=== PATIENT | male | born 1970 | race African-American/Black ===

== ENCOUNTER 2017-01-24 09:01 | Emergency (ER) | payer OTHER, BC ==
[2017-01-24 09:11] VITALS: BP 154/101; PULSE 75; TEMP 98; BMI 23.1
--- NOTE | 2017-01-24 10:21 | PDOC ---
History of Present Illness - General Chief Complaint: Injury Stated Complaint: PAIN/ BACK, LEG Time Seen by Provider: 01/24/17 10:11 History Source: Patient Exam Limitations: No Limitations - History of Present Illness Initial Comments: 01/24/17 10:27 Chief complaint: Back and leg injury Patient 46-year-old male with a history of stomach issues, he is not sure what, but had surgery and states that everything is okay, not sure what medicine he takes for his stomach but states he is allowed to take Motrin and Advil who came in after twisting his back and leg being twisted when he was moving furniture in the back of the truck broke. Patient did not fall. Patient is ambulatory. Patient states pain was worse last night but having some lower back pain and pain into the left leg, ankle. Patient did not take any pain medicine. No numbness and tingling, no saddle anesthesia, no urinary incontinence GENERAL/CONSTITUTIONAL: No fever, weakness. dizziness HEAD, EYES, EARS, NOSE AND THROAT: No change in vision. No ear pain or discharge. No sore throat. CARDIOVASCULAR: No chest pain RESPIRATORY: No shortness of breath or cough GASTROINTESTINAL: No pain, nausea, vomiting, diarrhea or constipation GENITOURINARY: No dysuria MUSCULOSKELETAL: No neck +back pain, + leg SKIN: No rash NEUROLOGIC: No headache, vertigo, loss of consciousness, or loss of sensation. GENERAL: The patient is awake, alert, and fully oriented, in no acute distress. HEAD: Normal with no signs of trauma. EYES: Pupils equal, round and reactive to light, sclera anicteric, conjunctiva clear. ENT: pharynx: no erythema, no exudate, uvula midline NECK: supple CHEST: clear, nontender, rr ABD: soft, nontender Back: Minimal lower back tenderness, some discomfort with movement EXTREMITIES: Left lower extremity knee: No tenderness, full range of motion, no swelling or signs of injury. Leg no tenderness or swelling, ankle with minimal tenderness, no gross swelling, good range of motion, Wilkerson test is negative, neurovascular intact. Rest of extremities, Normal range of motion, no edema. NEUROLOGICAL: Normal speech, normal gait. SKIN: Warm, Dry Past History - Past Medical History Allergies/Adverse Reactions: Allergies Allergy/AdvReac Type Severity Reaction Status Date / Time No Known Allergies Allergy Verified 01/24/17 09:11 Home Medications: Ambulatory Orders Cyclobenzaprine HCl [Flexeril 10 mg] 10 mg PO TID PRN #21 tablet 01/24/17 Ibuprofen [Motrin -] 600 mg PO QID #28 tablet 01/24/17 Asthma: No CVA: No COPD: No Diabetes: No HTN: Yes - Surgical History GI Surgery: Yes - Immunization History Td Vaccination: (unknown) Immunization Up to Date: Yes - Suicide/Smoking/Psychosocial Hx Smoking Status: Yes Smoking History: Never smoked Years of Tobacco Use: 8 Number of Cigarettes Smoked Daily: 2 Cigars Per Day: 0 'Breaking Loose' booklet given: 01/10/14 Hx Alcohol Use: Yes (SOCIAL) Drug/Substance Use Hx: No Substance Use Type: None *Physical Exam - Vital Signs Last Vital Signs Temp Pulse Resp BP Pulse Ox 98.0 F 75 20 154/101 97 01/24/17 09:08 01/24/17 09:08 01/24/17 09:08 01/24/17 09:08 01/24/17 09:08 Medical Decision Making - Medical Decision Making 01/24/17 10:31 Patient who twisted his back and leg yesterday while moving furniture, patient complaining of lower back pain, no incontinence, no saddle anesthesia or numbness or tingling. Patient with left leg pain. No concerning signs, does have some tenderness to the ankle, Achilles is intact, we'll get an x-ray, Motrin and Flexeril. Patient has taken Flexeril for her back issues before. No imaging is indicated for the spine 01/24/17 10:32 Patient feels better, ambulatory without any difficulty Discussed issues, findings, results, applicable medications and treatments and follow-up. All these were understood and all questions were answered 01/24/17 12:14 *DC/Admit/Observation/Transfer Diagnosis at time of Disposition: Back injury Qualifiers: Encounter type: initial encounter Qualified Code(s): S39.92XA - Unspecified injury of lower back, initial encounter Leg injury Qualifiers: Encounter type: initial encounter Laterality: left Qualified Code(s): S89.92XA - Unspecified injury of left lower leg, initial encounter - Discharge Dispostion Disposition: HOME Condition at time of disposition: Unchanged/Unknown Admit: No - Prescriptions Prescriptions: Cyclobenzaprine HCl [Flexeril 10 mg] 10 mg PO TID PRN #21 tablet PRN Reason: Back Pain Ibuprofen [Motrin -] 600 mg PO QID #28 tablet - Referrals Referrals: Elvi Vargas MD [Primary Care Provider] - Jose Angel Palmer MD [Staff Physician] - - Patient Instructions Printed Discharge Instructions: DI for Back Spasm Additional Instructions: No heavy lifting or bending Apply ice to the area 20 minutes every 2 hours for the next 2 days Continue taking Motrin 600 mg every 6 hours for pain. If still in pain you can take Flexeril one tablet 3 times a day hours. Return to the nearest ER if numbness, weakness, severe pain, problems with urinating or having bowel movements. Call orthopedist today for an appointment for further evaluation - Post Discharge Activity
[2017-01-24] MEDS ORDERED: IBUPROFEN 600 MG TABLET (FP) PO ONE ×2 (10:22→10:25)
[2017-01-24] MEDS ORDERED: CYCLOBENZAPRINE HCL 5 MG TABLET PO ONE (10:23)
[2017-01-24] MEDS ORDERED: CYCLOBENZAPRINE HCL 10 MG TABLET (FP) ONE (10:25)
== END 2017-01-24 11:28 | disposition home or self-care (01) ==
LOC: JERFT 09:01
DX: S39.82XA Other specified injuries of lower back, initial encounter (principal); S89.82XA Other specified injuries of left lower leg, initial encounter; X50.1XXA Overexertion from prolonged static or awkward postures, initial encounter; Y93.E6 Activity, residential relocation; Y92.89 Other specified places as the place of occurrence of the external cause; Y99.0 Civilian activity done for income or pay
CPT/HCPCS: 73610-TC-LT; 99281-25

== ENCOUNTER 2017-10-27 14:47 | Emergency (ER) | payer SELFPAY ==
--- NOTE | 2017-10-27 14:53 | PDOC ---
Rapid Medical Evaluation Chief Complaint: Pain, Acute Time Seen by Provider: 10/27/17 14:49 Medical Evaluation: Allergies Allergy/AdvReac Type Severity Reaction Status Date / Time No Known Allergies Allergy Verified 01/24/17 09:11 10/27/17 14:49 I have performed a brief in-person evaluation of this patient. The patient presents with a CC of: Abd Pain HPI: Pt states he has had abd pain x 1.5 weeks. Pt admits to N/V. Denies fever. Pt has a hx of abd surgeries. Pertinent PE findings: Skin: Clear Heart: RRR Lungs: Clear Abd: Pt has diffuse tenderness, no guarding, bowel sounds present. MS: Moves all extremities without difficulty. Neuro: Alert and Oriented Psych: Appropriate affect I have ordered the following: Abd protocol The patient will proceed to the ED for further evaluation. Discharge Disposition - Referrals Referrals: Elvi Vargas MD [Primary Care Provider] - - Patient Instructions - Post Discharge Activity
[2017-10-27 14:55] VITALS: BP 114/85; PULSE 98; TEMP 99; BMI 22.4
[2017-10-27] MEDS ORDERED: ONDANSETRON 4 MG/2 ML VIAL IVPUSH ONE (15:13)
[2017-10-27] MEDS ORDERED: FAMOTIDINE 20 MG/50 ML IVPB 20 MG/50 ML MG IVPB ONE ×2 (15:13→15:49)
[2017-10-27] MEDS ORDERED: SODIUM CHLORIDE 0.9% 1000 ML INFUS.BAG IV ONE (15:13)
--- NOTE | 2017-10-27 15:22 | PDOC ---
History of Present Illness - General Chief Complaint: Pain, Acute Stated Complaint: PAIN Time Seen by Provider: 10/27/17 14:49 History Source: Patient Exam Limitations: No Limitations - History of Present Illness Initial Comments: 10/27/17 15:18 The patient is a 47M with a PMH of HTN and "stomach surgery" who presents to the ER with complaints of epigastric pain. The patient states that he's had 4-5 days of intermittent, sharp, and abrupt onset abdominal pain. The patient describes a 9/10 pain which is associated with decreased PO intake, nausea, vomiting after eating meals NBNB. LBM yesterday which was normal. He admits to fevers, chills, CP (which he cannot describe as he states it "is sometimes the same as my stomach pains"), but denies SOB. Past History - Past Medical History Allergies/Adverse Reactions: Allergies Allergy/AdvReac Type Severity Reaction Status Date / Time No Known Allergies Allergy Verified 10/27/17 14:51 Home Medications: Ambulatory Orders Cyclobenzaprine HCl [Flexeril 10 mg] 10 mg PO TID PRN #21 tablet 01/24/17 Ibuprofen [Motrin -] 600 mg PO QID #28 tablet 01/24/17 Asthma: No CVA: No COPD: No Diabetes: No HTN: Yes - Surgical History GI Surgery: Yes - Immunization History Td Vaccination: (unknown) Immunization Up to Date: Yes - Suicide/Smoking/Psychosocial Hx Smoking Status: Yes Smoking History: Never smoked Years of Tobacco Use: 8 Number of Cigarettes Smoked Daily: 2 Cigars Per Day: 0 Information on smoking cessation initiated: No 'Breaking Loose' booklet given: 01/10/14 Hx Alcohol Use: No Drug/Substance Use Hx: No Substance Use Type: None Review of Systems - Review of Systems Able to Perform ROS?: Yes Comments:: 10/27/17 15:22 GENERAL/CONSTITUTIONAL: No fever or chills. No weakness. HEAD, EYES, EARS, NOSE AND THROAT: No change in vision. No ear pain or discharge. No sore throat. CARDIOVASCULAR: Positive for CP. No palpitations or lightheadedness. RESPIRATORY: No cough, wheezing, shortness of breath, or hemoptysis. GASTROINTESTINAL: Positive for abdominal pain, nausea, vomiting. No diarrhea or constipation. GENITOURINARY: No dysuria, frequency, hematuria, or change in urination. MUSCULOSKELETAL: No joint or muscle swelling or pain. No neck or back pain. SKIN: No rash or lesions. NEUROLOGIC: No headache, numbness, tingling, focal weakness, loss of consciousness, or change in strength/sensation. ENDOCRINE: No increased thirst. No abnormal weight change. HEMATOLOGIC/LYMPHATIC: No anemia, easy bleeding, or history of blood clots. ALLERGIC/IMMUNOLOGIC: No hives or skin allergy. Is the patient limited Jamaican proficient: No *Physical Exam - Vital Signs Last Vital Signs Temp Pulse Resp BP Pulse Ox 99.0 F 98 H 16 114/85 95 10/27/17 14:51 10/27/17 14:51 10/27/17 14:51 10/27/17 14:51 10/27/17 14:51 - Physical Exam Comments: 10/27/17 15:30 GENERAL: Well developed, well nourished. Awake and alert. No acute distress. HEENT: Normocephalic, atraumatic. Hearing grossly normal. Moist mucous membranes. PERRLA, EOMI. No conjunctival pallor. Sclera are non-icteric. NECK: Supple. Full ROM. CARDIOVASCULAR: Regular rate and rhythm. No murmurs, rubs, or gallops. PULMONARY: No evidence of respiratory distress. Lungs clear to auscultation bilaterally. No wheezing, rales or rhonchi. ABDOMINAL: Soft. TTP over epigastrium. Non-distended. No rebound or guarding. Positive Emerson's sign. GENITOURINARY: No CVA tenderness bilaterally. MUSCULOSKELETAL: Normal range of motion at all joints. No bony deformities or tenderness. EXTREMITIES: No cyanosis. No clubbing. No edema. No calf tenderness or swelling. SKIN: Warm and dry. Normal capillary refill. No rashes. No jaundice. NEUROLOGICAL: Alert, awake, appropriate. Cranial nerves 2-12 intact. Normal speech. Gait is normal without ataxia. PSYCHIATRIC: Cooperative. Good eye contact. Appropriate mood and affect. ED Treatment Course - LABORATORY CBC & Chemistry Diagram: 10/27/17 15:25 10/27/17 15:25 - RADIOLOGY Radiology Studies Ordered: Category Date Time Status ABDOMEN US -LIMITED [US] Stat Ultrasound 10/27/17 15:15 Ordered Medical Decision Making - Medical Decision Making 10/27/17 15:35 The patient is a 47M with a PMH of HTN and abdominal surgery who presents with abdominal pain. Concern for pancreatitis vs RUQ pathology. ACS is very low on the differential as the patient has tenderness to palpation. Will give fluids, pepcid, and zofran and reassess. 10/27/17 17:09 RUQ US shows dilated CBD 1cm with dilated pancreatic duct. Pending CTAP. 10/27/17 18:56 Pending CTAP read. Pt states he feels better. 10/27/17 20:03 CTAP shows no acute pathology but also shows the 1cm dilation of CBD. Will d/c with PCP and GI f/u. *DC/Admit/Observation/Transfer Diagnosis at time of Disposition: Abdominal pain Qualifiers: Abdominal location: generalized Qualified Code(s): R10.84 - Generalized abdominal pain - Discharge Dispostion Disposition: HOME Condition at time of disposition: Stable Decision to Admit order: No - Referrals Referrals: Elvi Vargas MD [Primary Care Provider] - Cathy Dejesus MD [Staff Physician] - - Patient Instructions Printed Discharge Instructions: DI for Abdominal Pain-Adult Additional Instructions: Please follow up with your primary care physician in 2-3 days. Follow up with the GI doctor, Dr. Dejesus, in 3-5 day Please return to the ER if you have any signs or symptoms of chest pain, shortness of breath, uncontrollable fever, chills, nausea, vomiting, numbness, tingling, or weakness in any part of your body, changes in vision, or slurred speech. Please return to the ER if symptoms persist, worsen, or new symptoms arise. - Post Discharge Activity
[2017-10-27] MEDS ORDERED: ONDANSETRON 4 MG/2 ML VIAL ONE (15:49)
[2017-10-27 15:50] LABS: BASO % 0.9 % (0-2.0); EOS % 1.6 % (0-4.5); HEMATOCRIT 43.5 % (35.4-49); HEMOGLOBIN 14.7 GM/dL (11.7-16.9); LYMPH % 32.8 % (8-40); MCH 31.8 pg (25.7-33.7); MCHC 33.9 g/dl (32.0-35.9); MEAN CELL VOLUME 93.8 fl (80-96); MEAN PLT VOLUME 8.1 fl (7.5-11.1); MONO % 9.4 % (3.8-10.2); NEUT % 55.3 % (42.8-82.8); PLATELET COUNT 201 K/MM3 (134-434); RBC 4.63 M/mm3 (4.00-5.60); RDW 13.4 % (11.9-15.9); WHITE BLOOD COUNT 6.4 K/mm3 (4.0-10.0)
--- NOTE | 2017-10-27 16:02 | PDOC ---
Attending Attestation - Resident Resident Name: Jr Lynn - ED Attending Attestation I have performed the following: I have examined & evaluated the patient, The case was reviewed & discussed with the resident, I agree w/resident's findings & plan - HPI HPI: 10/27/17 15:58 47-year-old male with history of perforated gastric ulcer 2 years ago status post repair with no GI follow-up now presents with several days of intermittent sharp epigastric pain associated with nonbloody nonbilious emesis, typically occurs at night but is not necessarily postprandial. No fevers or chills, no melena or bright red blood per rectum, no other chest pain. - Physicial Exam PE: 10/27/17 15:58 Vitals as noted well-appearing seated in chair No jaundice or pallor, oropharynx clear Heart is regular, lungs are clear Abdomen is soft and nondistended, epigastric discomfort to palpation but no guarding or rebound. No CVA tenderness. No edema - Medical Decision Making 10/27/17 16:00 47-year-old male presents with epigastric pain intermittently for several days associated with vomiting, history of ulcers. Abdominal exam shows no acute peritoneal findings, question recurrence versus biliary versus pancreatic etiology. Not consistent with cardiac etiology. Labs, urinalysis CT of the abdomen and pelvis, rule out stricture versus obstruction EKG IV fluids, antacids Reassess Heart Score/ECG Review #1 ECG reviewed & interpreted by me at: 15:34 General ECG Interpretation: Sinus Rhythm, Normal Rate (69), Normal Intervals ( qtc 445), No acute ischemic changes
[2017-10-27 16:06] LABS: ALBUMIN 4.1 g/dl (3.4-5.0); ANION GAP 12 MMOL/L (8-16); BLOOD UREA NITROGEN 16 mg/dL (7-18); CALCIUM 9.4 mg/dL (8.5-10.1); CHLORIDE 103 mmol/L (98-107); CO2 26 mmol/L (21-32); CREATININE 1.1 mg/dL (0.55-1.3); GLUCOSE,RANDOM 97 mg/dL (74-106); LIPASE 122 U/L (73-393); POTASSIUM 3.8 mmol/L (3.5-5.1); SGOT/AST 23 U/L (15-37); SGPT/ALT 22 U/L (13-61); SODIUM 141 mmol/L (136-145)
[2017-10-27 16:08] LABS: ALK PHOS 60 U/L (45-117); TOT PROT 7.4 g/dl (6.4-8.2)
--- NOTE | 2017-10-28 12:33 | EKG ---
Test Reason : Blood Pressure : / mmHG Vent. Rate : 069 BPM Atrial Rate : 069 BPM P-R Int : 116 ms QRS Dur : 098 ms QT Int : 416 ms P-R-T Axes : 072 073 016 degrees QTc Int : 445 ms NORMAL SINUS RHYTHM WITH SINUS ARRHYTHMIA POSSIBLE LEFT ATRIAL ENLARGEMENT BORDERLINE ECG WHEN COMPARED WITH ECG OF 06-APR-2014 13:43, NO SIGNIFICANT CHANGE WAS FOUND Confirmed by JERILYN ALVARADO, HAYLEY ([id number]) on 10/28/2017 12:32:57 PM Referred By: Confirmed By:HAYLEY JEAN-BAPTISTE MD
== END 2017-10-27 20:40 | disposition home or self-care (01) ==
LOC: JER 14:47
PROC: 3E0337Z Introduction of Electrolytic and Water Balance Substance into Peripheral Vein, Percutaneous Approach (ICD-10-PCS; principal; 2017-10-27)
PROC: 3E033GC Introduction of Other Therapeutic Substance into Peripheral Vein, Percutaneous Approach (ICD-10-PCS; 2017-10-27)
DX: R10.84 Generalized abdominal pain (principal); I10 Essential (primary) hypertension
CPT/HCPCS: 36415; 74177-TC; 76705-TC; 80053; 83690; 85025; 93005; 93010; 99283-25; J7030

== ENCOUNTER 2018-12-07 15:08 | Emergency (ER) | payer BC ==
[2018-12-07 15:15] VITALS: BP 144/96; PULSE 68; TEMP 98; BMI 24.4
--- NOTE | 2018-12-07 15:15 | PDOC ---
Rapid Medical Evaluation Time Seen by Provider: 12/07/18 15:14 Medical Evaluation: Allergies Allergy/AdvReac Type Severity Reaction Status Date / Time No Known Allergies Allergy Verified 10/27/17 14:51 12/07/18 15:14 I have performed a brief in-person evaluation of this patient. The patient presents with a chief complaint of: Abd pain x 2 days. Possible recurrent. No n/v/d/c/f/c. Endorses h/o "abdominal surgery" remotely but does not remember details Pertinent physical exam findings:stable w/ unremarkable abd I have ordered the following:labs The patient will proceed to the ED for further evaluation. Discharge Disposition - Diagnosis Abdominal pain Qualifiers: Abdominal location: unspecified location Qualified Code(s): R10.9 - Unspecified abdominal pain - Referrals - Patient Instructions - Post Discharge Activity
[2018-12-07 15:41] LABS: BASO % 1.1 % (0-2.0); EOS % 3.5 % (0-4.5); HEMATOCRIT 44.9 % (35.4-49); HEMOGLOBIN 14.9 GM/dL (11.7-16.9); LYMPH % 35.1 % (8-40); MCH 32.5 pg (25.7-33.7); MCHC 33.1 g/dl (32.0-35.9); MEAN PLT VOLUME 8.3 fl (7.5-11.1); NEUT % 50.3 % (42.8-82.8); PLATELET COUNT 209 K/MM3 (134-434); RBC 4.58 M/mm3 (4.00-5.60); RDW 13.7 % (11.9-15.9); WHITE BLOOD COUNT 5.8 K/mm3 (4.0-10.0)
[2018-12-07 15:44] LABS: EPI CELLS 1.2 /HPF (0-5/HPF); HYALINE CASTS 2 /lpf (0-8); URINE APPEARANCE CLEAR; URINE BACTERIA 13.2 /hpf (NEGATIVE); URINE BILIRUBIN NEGATIVE (NEGATIVE); URINE COLOR YELLOW; URINE GLUCOSE (UA) NEGATIVE (NEGATIVE); URINE KETONE TRACE (NEGATIVE); URINE LEUK ESTERASE TRACE (NEGATIVE); URINE NITRITE NEGATIVE (NEGATIVE); URINE PROTEIN NEGATIVE (NEGATIVE); URINE RBC 1 /hpf (0-4); URINE WBC 2 /hpf (0-5)
[2018-12-07] MEDS ORDERED: FAMOTIDINE 20 MG/50 ML IVPB 20 MG/50 ML MG IVPB ONE ×2 (15:55→15:58)
[2018-12-07] MEDS ORDERED: SODIUM CHLORIDE 1,000 ML IV STA (15:55)
[2018-12-07] MEDS ORDERED: ACETAMINOPHEN 1000 MG/100 ML VIAL (NON FORMULARY) IVPB ONE (15:57)
[2018-12-07] MEDS ORDERED: ACETAMINOPHEN INJECTION 100 ML IVPB ONE (16:01)
[2018-12-07 16:09] LABS: ALBUMIN 3.6 g/dl (3.4-5.0); BILIRUBIN,TOTAL 0.4 mg/dL (0.2-1); BLOOD UREA NITROGEN 14.2 mg/dL (7-18); CREATININE 1.1 mg/dL (0.55-1.3); POTASSIUM 4.3 mmol/L (3.5-5.1); TOT PROT 6.4 g/dl (6.4-8.2)
--- NOTE | 2018-12-07 16:16 | PDOC ---
History of Present Illness - General History Source: Patient Exam Limitations: Clinical Condition - History of Present Illness Travel History: No Initial Comments: 12/07/18 16:12 Patient with a history of gastric ulcer status post surgery with 2 years ago for gastric ulcer presented with complaint of one-week history of worsening epigastric pain. Patient reported abdominal pain not affected by food. Reports pain is intermittent cramping epigastric pain. Patient reports 7 out of 10 pain now. Denies nausea, vomiting, fever, chills, diarrhea or constipation. Patient report calling his PCP for follow-up who advised him to come to the ED for abdominal CAT scan. Patient to follow-up with his PCP in few days. Patient did not take anything for pain Timing/Duration: reports: other (1 week) Quality: reports: burning, cramping Abdominal Pain Onset Location: reports: epigastric Pain Radiation: reports: no radiation <Finn Mariee - Last Filed: 12/07/18 17:53> <Jan Day - Last Filed: 12/07/18 18:42> - General Chief Complaint: Pain Stated Complaint: ABD. PAIN/LOWER BACK PAIN Time Seen by Provider: 12/07/18 15:14 Past History - Past Medical History Asthma: No CVA: No COPD: No Diabetes: No HTN: Yes - Surgical History GI Surgery: Yes - Immunization History Td Vaccination: (unknown) Immunization Up to Date: Yes - Psycho Social/Smoking Cessation Hx Smoking Status: Yes Smoking History: Current every day smoker Years of Tobacco Use: 8 Number of Cigarettes Smoked Daily: 40 Cigars Per Day: 0 Information on smoking cessation initiated: No 'Breaking Loose' booklet given: 01/10/14 Hx Alcohol Use: No Drug/Substance Use Hx: No Substance Use Type: None <Finn Mariee - Last Filed: 12/07/18 17:53> <Jan Day - Last Filed: 12/07/18 18:42> - Past Medical History Allergies/Adverse Reactions: Allergies Allergy/AdvReac Type Severity Reaction Status Date / Time No Known Allergies Allergy Verified 12/07/18 15:16 Home Medications: Ambulatory Orders Acetaminophen [Tylenol] 650 mg PO Q6H PRN #20 capsule 12/07/18 Famotidine [Pepcid -] 20 mg PO BID #14 tablet 12/07/18 Mag Hydrox/Aluminum Hyd/Simeth [Maalox Advanced Suspension] 30 ml PO Q8H PRN # 200 ml 12/07/18 Abd/GI Specific PMHX - Complaint Specific PMHX Colitis: No Diverticulitis: No Gall Bladder Disease: No GERD: Yes Hepatitis: No Irritable Bowel Synd (IBS): No Pancreatitis: No GI Ulcer Disease: Yes <Finn Mariee - Last Filed: 12/07/18 17:53> Review of Systems - Review of Systems Able to Perform ROS?: Yes Is the patient limited Chinese proficient: No Constitutional: No: Chills, Fever, Malaise HEENTM: No: Symptoms Reported Respiratory: No: Symptoms reported Cardiac (ROS): No: Symptoms Reported, See HPI, Chest Pain, Edema, Irregular Heart Rate, Lightheadedness, Palpitations, Syncope, Chest Tightness, Other ABD/GI: Yes: See HPI, Abdominal cramping (epigastric pain). No: Symptoms Reported, Abd. Pain w/ defecation, Blood Streaked Bowels, Constipated, Diarrhea , Difficulty Swallowing, Nausea, Poor Appetite, Poor Fluid Intake, Rectal Bleeding, Vomiting, Indigestion, Tarry Stools : No: Symptoms Reported All Other Systems: Reviewed and Negative <Finn Mariee - Last Filed: 12/07/18 17:53> *Physical Exam - Vital Signs Last Vital Signs Temp Pulse Resp BP Pulse Ox 98 F 68 18 144/96 98 12/07/18 15:12 12/07/18 15:12 12/07/18 15:12 12/07/18 15:12 12/07/18 15:12 - Physical Exam Comments: 12/07/18 16:16 GENERAL: Well developed, well nourished. Awake and alert in mild acute distress. NECK: Supple. Full ROM. CARDIOVASCULAR: Regular rate and rhythm. No murmurs, rubs, or gallops. PULMONARY: No evidence of respiratory distress. Lungs clear to auscultation bilaterally. No wheezing, rales or rhonchi. ABDOMINAL: Soft. Moderate epigastric tenderness. Non-distended. No rebound or guarding. No organomegaly. Normoactive bowel sounds. MUSCULOSKELETAL Normal range of motion at all joints. SKIN: Warm and dry. Normal capillary refill. NEUROLOGICAL: Alert, awake, appropriate. Gait is normal without ataxia. PSYCHIATRIC: Cooperative. Good eye contact. Appropriate mood General Appearance: Yes: Nourished, Appropriately Dressed, Mild Distress <Finn Mariee - Last Filed: 12/07/18 17:53> - Vital Signs Last Vital Signs Temp Pulse Resp BP Pulse Ox 98 F 68 18 144/96 98 12/07/18 15:12 12/07/18 15:12 12/07/18 15:12 12/07/18 15:12 12/07/18 15:12 <Jan Day - Last Filed: 12/07/18 18:42> ED Treatment Course - LABORATORY CBC & Chemistry Diagram: 12/07/18 15:32 12/07/18 15:32 - ADDITIONAL ORDERS Additional order review: Laboratory Results 12/07/18 12/07/18 15:32 15:32 Sodium 141 Potassium 4.3 Chloride 108 H Carbon Dioxide 28 Anion Gap 5 L BUN 14.2 Creatinine 1.1 Est GFR (CKD-EPI)AfAm 90.24 Est GFR (CKD-EPI)NonAf 77.86 Random Glucose 99 Calcium 9.0 Total Bilirubin 0.4 AST 23 ALT 26 Alkaline Phosphatase 58 Total Protein 6.4 Albumin 3.6 Lipase 98 Urine Color Yellow Urine Appearance Clear Urine pH 7.0 D Ur Specific [place] 1.024 Urine Protein Negative Urine Glucose (UA) Negative Urine Ketones Trace H Urine Blood Negative Urine Nitrite Negative Urine Bilirubin Negative Urine Urobilinogen 1.0 Ur Leukocyte Esterase Trace Urine WBC (Auto) 2 Urine RBC (Auto) 1 Urine Casts (Auto) 2 U Epithel Cells (Auto) 1.2 Urine Bacteria (Auto) 13.2 12/07/18 15:32 RBC 4.58 MCV 98.0 H MCHC 33.1 RDW 13.7 MPV 8.3 Neutrophils % 50.3 Lymphocytes % 35.1 Monocytes % 10.0 Eosinophils % 3.5 D Basophils % 1.1 - RADIOLOGY Radiology Studies Ordered: Category Date Time Status ABDOMEN & PELVIS CT WITH CONTR [CT] Stat CT Scan 12/07/18 16:09 Ordered - Medications Given in the ED: ED Medications Discontinued Medications Generic Name Dose Route Start Last Admin Trade Name Freq PRN Reason Stop Dose Admin Acetaminophen 1,000 mg 12/07/18 15:57 12/07/18 16:09 Ofirmev Injection - IVPB 12/07/18 15:58 1,000 mg ONCE ONE Administration <Kodi,Finn Morro - Last Filed: 12/07/18 17:53> - LABORATORY CBC & Chemistry Diagram: 12/07/18 15:32 12/07/18 15:32 - ADDITIONAL ORDERS Additional order review: Laboratory Results 12/07/18 12/07/18 15:32 15:32 Sodium 141 Potassium 4.3 Chloride 108 H Carbon Dioxide 28 Anion Gap 5 L BUN 14.2 Creatinine 1.1 Est GFR (CKD-EPI)AfAm 90.24 Est GFR (CKD-EPI)NonAf 77.86 Random Glucose 99 Calcium 9.0 Total Bilirubin 0.4 AST 23 ALT 26 Alkaline Phosphatase 58 Total Protein 6.4 Albumin 3.6 Lipase 98 Urine Color Yellow Urine Appearance Clear Urine pH 7.0 D Ur Specific [place] 1.024 Urine Protein Negative Urine Glucose (UA) Negative Urine Ketones Trace H Urine Blood Negative Urine Nitrite Negative Urine Bilirubin Negative Urine Urobilinogen 1.0 Ur Leukocyte Esterase Trace Urine WBC (Auto) 2 Urine RBC (Auto) 1 Urine Casts (Auto) 2 U Epithel Cells (Auto) 1.2 Urine Bacteria (Auto) 13.2 12/07/18 15:32 RBC 4.58 MCV 98.0 H MCHC 33.1 RDW 13.7 MPV 8.3 Neutrophils % 50.3 Lymphocytes % 35.1 Monocytes % 10.0 Eosinophils % 3.5 D Basophils % 1.1 - Medications Given in the ED: ED Medications Discontinued Medications Generic Name Dose Route Start Last Admin Trade Name Freq PRN Reason Stop Dose Admin Acetaminophen 1,000 mg 12/07/18 15:57 12/07/18 16:09 Ofirmev Injection - IVPB 12/07/18 15:58 1,000 mg ONCE ONE Administration Famotidine/Sodium Chloride 20 mg in 50 mls @ 100 mls/hr 12/07/18 15:55 16:09 Pepcid 20 Mg Premixed Ivpb - IVPB 12/07/18 16:24 100 mls/hr ONCE ONE Administration Sodium Chloride 1,000 mls @ 1,000 mls/hr 12/07/18 15:55 12/07/18 16:08 Normal Saline - IV 12/07/18 16:54 1,000 mls/hr ASDIR STA Administration <Jan Day - Last Filed: 12/07/18 18:42> Medical Decision Making - Medical Decision Making 12/07/18 16:14 Patient with a history of gastric ulcer status post surgery with 2 years ago for gastric ulcer presented with complaint of one-week history of worsening epigastric pain. Patient reported abdominal pain not affected by food. Reports pain is intermittent cramping epigastric pain. Patient reports 7 out of 10 pain now. Denies nausea, vomiting, fever, chills, diarrhea or constipation. Patient report calling his PCP for follow-up who advised him to come to the ED for abdominal CAT scan. Patient to follow-up with his PCP in few days. Patient did not take anything for pain Exam significant for moderate epigastric tenderness throughout regard about rebound without guarding or rebound otherwise normal exam. Symptoms likely gastric ulcer versus gastritis. CBC, CMP and lipase level ordered. IV Tylenol 1 g ordered IV for pain. IV hydration with normal saline 1 L ordered. Abdominal CAT scan with IV contrast ordered to rule out acute abdominal pathology 12/07/18 17:53 CBC and CMP unremarkable. abdominal CT shows no acute pathology and unchanged from CT a year ago. Patient stable for discharge on pepcid and maalox for gastritis with GI f/u. Patient stable for discharge. Patient pain improved after IV fluids, pepcid and Tylenol <Finn Mariee - Last Filed: 12/07/18 17:53> - Medical Decision Making 12/07/18 18:42 I reviewed the case of the mid-level practitioner and was available for consultation while in the emergency department <Jan Day - Last Filed: 12/07/18 18:42> Discharge - Discharge Information Problems reviewed: Yes - Admission No <Finn Mariee - Last Filed: 12/07/18 17:53> <Jan Day - Last Filed: 12/07/18 18:42> - Discharge Information Clinical Impression/Diagnosis: Abdominal pain Qualifiers: Abdominal location: epigastric Qualified Code(s): R10.13 - Epigastric pain Gastritis Qualifiers: Gastritis type: unspecified gastritis Chronicity: chronic Gastritis bleeding: without bleeding Qualified Code(s): K29.50 - Unspecified chronic gastritis without bleeding Condition: Stable Disposition: HOME - Additional Discharge Information Prescriptions: Acetaminophen [Tylenol] 650 mg PO Q6H PRN #20 capsule PRN Reason: pain Famotidine [Pepcid -] 20 mg PO BID #14 tablet Mag Hydrox/Aluminum Hyd/Simeth [Maalox Advanced Suspension] 30 ml PO Q8H PRN # 200 ml PRN Reason: abdominal discomfort - Follow up/Referral Referrals: Cathy Dejesus MD [Staff Physician] - - Patient Discharge Instructions Patient Printed Discharge Instructions: DI for Gastritis Additional Instructions: Your labs is normal. Your abdominal CT shows no acute pathology and unchanged from CATs scan last year. Take medications as prescribed. Increase fluid intake. Follow-up with referred GI doctor
== END 2018-12-07 17:52 | disposition home or self-care (01) ==
LOC: JER 15:08
PROC: 3E033GC Introduction of Other Therapeutic Substance into Peripheral Vein, Percutaneous Approach (ICD-10-PCS; principal; 2018-12-07)
PROC: 3E033NZ Introduction of Analgesics, Hypnotics, Sedatives into Peripheral Vein, Percutaneous Approach (ICD-10-PCS; 2018-12-07)
DX: K29.50 Unspecified chronic gastritis without bleeding (principal); I10 Essential (primary) hypertension; Z87.19 Personal history of other diseases of the digestive system; Z98.890 Other specified postprocedural states
CPT/HCPCS: 36415; 74177-TC; 80053; 81003; 83690; 85025; 99284-25; J0131; J7030; Q9967

== ENCOUNTER 2019-10-25 14:06 | Emergency (ER) | payer BC ==
--- NOTE | 2019-10-25 14:14 | PDOC ---
Rapid Medical Evaluation Time Seen by Provider: 10/25/19 14:08 Medical Evaluation: Allergies Allergy/AdvReac Type Severity Reaction Status Date / Time No Known Allergies Allergy Verified 12/07/18 15:16 10/25/19 14:12 I have performed a brief in-person evaluation of this patient The patient presents with a chief complaint of:"I'm having chronic pain in my stomach", getting worse and unable to eat x 9 days. Per records here, pt has had multiple ER visits for same over years and usually dc from the ER. Based on records, it was recorded that pt has h/o gastric ulcer and s/p ? surgery Pertinent physical exam findings:stable, well mary I have ordered the following:labs The patient will proceed to the ED for further evaluation 10/25/19 14:14 Discharge Disposition - Diagnosis Abdominal pain Qualifiers: Abdominal location: unspecified location Qualified Code(s): R10.9 - Unspecified abdominal pain - Referrals - Patient Instructions - Post Discharge Activity
[2019-10-25 14:15] VITALS: BP 128/92; PULSE 91; BMI 22.4
[2019-10-25 14:16] VITALS: TEMP 97.9
[2019-10-25] MEDS ORDERED: ONDANSETRON 4 MG/2 ML VIAL IVPUSH ONE (14:57)
[2019-10-25] MEDS ORDERED: ACETAMINOPHEN 1000 MG/100 ML VIAL (NON FORMULARY) IVPB ONE (14:57)
[2019-10-25] MEDS ORDERED: FAMOTIDINE 20 MG/50 ML IVPB 20 MG/50 ML MG IVPB ONE ×2 (14:57→15:14)
[2019-10-25] MEDS ORDERED: SODIUM CHLORIDE 1,000 ML IV STA (14:57)
[2019-10-25] MEDS ORDERED: MAG HYDROX/AL HYDROX/SIMETH 30 ML UNIT-DOSE CUP PO ONE (14:58)
[2019-10-25] MEDS ORDERED: MAG HYDROX/AL HYDROX/SIMETH 30 ML UNIT-DOSE CUP ONE (15:14)
[2019-10-25] MEDS ORDERED: ACETAMINOPHEN INJECTION 100 ML IVPB ONE (15:14)
--- OUTSIDE RECORDS SUMMARY | 2019-10-25 15:36 | XMS ---
:1970 Author Organization [facility] Support Name Relationship Address Phone MUNICIPAL HOUSING AUTH Unavailable [facility] [place] [address] EUGENIA FAULKNER DAUGHTER Serene [address] [place] [address] Re-disclosure Warning The records that you are about to access may contain information from federally- assisted alcohol or drug abuse programs. If such information is present, then the following federally mandated warning applies: This information has been disclosed to you from records protected by federal confidentiality rules (42 CFR part 2). The federal rules prohibit you from making any further disclosure of this information unless further disclosure is expressly permitted by the written consent of the person to whom it pertains or as otherwise permitted by 42 CFR part 2. A general authorization for the release of medical or other information is NOT sufficient for this purpose. The Federal rules restrict any use of the information to criminally investigate or prosecute any alcohol or drug abuse patient.The records that you are about to access may contain highly sensitive health information, the redisclosure of which is protected by Article 27-F of the [facility] Public Health law. If you continue you may haveaccess to information: Regarding HIV / AIDS; Provided by facilities licensed or operated by the [facility] Office of Mental Health; or Provided by the [facility] Office for People With Developmental Disabilities. If such information is present, then the following [facility] mandated warning applies: This information has been disclosed to you from confidential records which are protected by state law. State law prohibits you from making any further disclosure of this information without the specific written consent of the person to whom it pertains, or as otherwise permitted by law. Any unauthorized further disclosure in violation of state law may result in a fine or shelter sentence or both. A general authorization for the release of medical or other information is NOT sufficient authorization for further disclosure. Insurance Providers Payer name Policy type Policy ID Covered Covered constitution party's Policy P jeferson / Coverage constitution party ID relationship to [employer] ormation type trivedi BC PPO [id number] SP [id number] SELF PAY SP INSURANCE Results ID Date Data Source [id number] 05/18/2019 12:00:00 AM EDT [place] Name Value Range Interpretation Code Description Data Rachel rce(s) Supporting Document(s ) 2019-nCoV [facility] RNA XXX ALFREDO+probe- Imp This lab was ordered by [facility]Allie MURRAY and reported by [employer] Procedure
--- NOTE | 2019-10-25 15:43 | PDOC ---
History of Present Illness - General Chief Complaint: Pain, Acute Stated Complaint: ABD PAIN Time Seen by Provider: 10/25/19 14:08 History Source: Patient Exam Limitations: No Limitations Past History - Travel History Traveled outside of the country in the last 30 days: No Close contact w/someone who was outside of country & ill: No - Medical History Allergies/Adverse Reactions: Allergies Allergy/AdvReac Type Severity Reaction Status Date / Time No Known Allergies Allergy Verified 10/25/19 14:12 Home Medications: Ambulatory Orders Amlodipine Besylate [Norvasc -] 10 mg PO DAILY 10/25/19 Cholecalciferol (Vitamin D3) [Vitamin D3 -] 50,000 unit PO WEEKLY 10/25/19 Asthma: No CVA: No COPD: No Diabetes: No HTN: Yes - Surgical History GI Surgery: Yes - Immunization History Td Vaccination: (unknown) Immunization Up to Date: Yes - Psycho-Social/Smoking History Smoking Status: Yes Smoking History: Current every day smoker Years of Tobacco Use: 8 Number of Cigarettes Smoked Daily: 40 Cigars Per Day: 0 Information on smoking cessation initiated: No 'Breaking Loose' booklet given: 01/10/14 - Substance Abuse Hx (Audit-C & DAST Scrn) How often the patient has a drink containing alcohol: Monthly or less Score: In Men: 4 or > Positive; In Women: 3 or > Positive: 1 Screen Result (Pos requires Nsg. Audit-10AR): Negative In the last yr the pt used illegal drug/Rx for NonMed reason: No Score: Yes response is considered Positive: 0 Screen Result (Positive result requires Nsg. DAST-10): Negative Review of Systems - Review of Systems Able to Perform ROS?: Yes Comments:: 10/25/19 15:27 CONSTITUTIONAL: Absent: fever, chills, diaphoresis, generalized weakness, malaise, loss of appetite HEENT: Absent: rhinorrhea, nasal congestion, throat pain, throat swelling, difficulty swallowing, mouth swelling, ear pain, eye pain, visual Changes CARDIOVASCULAR: Absent: chest pain, loss of consciousness, palpitations, irregular heart rate, peripheral edema RESPIRATORY: Absent: cough, shortness of breath, dyspnea with exertion, orthopnea, wheezing, stridor, hemoptysis GASTROINTESTINAL: Present: abdominal pain, nausea Absent: abdominal distension, vomiting, diarrhea, constipation, melena, hematochezia GENITOURINARY: Absent: dysuria, frequency, urgency, hesitancy, hematuria, flank pain, genital pain MUSCULOSKELETAL: Absent: myalgia, arthralgia, joint swelling SKIN: Absent: rash, itching, pallor HEMATOLOGIC/IMMUNOLOGIC: Absent: easy bleeding, easy bruising, lymphadenopathy, frequent infections ENDOCRINE: Absent: unexplained weight gain, unexplained weight loss, heat intolerance, cold intolerance NEUROLOGIC: Absent: headache, focal weakness or paresthesias, dizziness, unsteady gait, seizure, mental status changes, bladder or bowel incontinence PSYCHIATRIC: Absent: anxiety, depression, suicidal or homicidal ideation, hallucinations. Is the patient limited Macedonian proficient: No *Physical Exam - Vital Signs Last Vital Signs Temp Pulse Resp BP Pulse Ox 97.9 F 91 H 18 128/92 97 10/25/19 14:13 10/25/19 14:13 10/25/19 14:13 10/25/19 14:13 10/25/19 14:13 - Physical Exam 10/25/19 16:19 GENERAL: Well developed, well nourished. Awake and alert. No acute distress. HEENT: Normocephalic, atraumatic. PERRLA, EOMI. No conjunctival pallor. Sclera are non- icteric. Moist mucous membranes. Oropharynx is clear. NECK: Supple. Full ROM. No JVD. Carotid pulses 2+ and symmetric, without bruits. No th yromegaly. No lymphadenopathy. CARDIOVASCULAR: Regular rate and rhythm. No murmurs, rubs, or gallops. Distal pulses are 2+ and symmetric. PULMONARY: No evidence of respiratory distress. Lungs clear to auscultation bilaterally. No wheezing, rales or rhonchi. ABDOMINAL: Tenderness palpation of the right upper quadrant epigastric regions. Soft. Non- distended. No rebound or guarding. No organomegaly. Normoactive bowel sounds. MUSCULOSKELETAL Normal range of motion at all joints. No bony deformities or tenderness. No CVA tenderness. EXTREMITIES: No cyanosis. No clubbing. No edema. No calf tenderness. SKIN: Warm and dry. Normal capillary refill. No rashes. No jaundice. NEUROLOGICAL: Alert, awake, appropriate. Cranial nerves 2-12 intact. No deficits to light touch and temperature in face, upper extremities and lower extremities. No motor deficits in the in face, upper extremities and lower extremities. Normoreflexic in the upper and lower extremities. Normal speech. Toes are down-going bilaterally. Gait is normal without ataxia. PSYCHIATRIC: Cooperative. Good eye contact. Appropriate mood and affect. ED Treatment Course - LABORATORY CBC & Chemistry Diagram: 10/25/19 15:10 10/25/19 15:10 - Medications Given in the ED: ED Medications Discontinued Medications Generic Name Dose Route Start Last Admin Trade Name Digna PRN Reason Stop Dose Admin Acetaminophen 1,000 mg 10/25/19 14:57 10/25/19 15:23 Ofirmev Injection - IVPB 10/25/19 14:58 1,000 mg ONCE ONE Administration Al Hydroxide/Mg Hydroxide 30 ml 10/25/19 14:58 10/25/19 15:24 Mylanta Oral Suspension - PO 10/25/19 14:59 30 ml ONCE ONE Administration Famotidine/Sodium Chloride 20 mg in 50 mls @ 100 mls/hr 10/25/19 14:57 10/25/19 15:23 Pepcid 20 Mg Premixed Ivpb - IVPB 10/25/19 15:26 100 mls/hr ONCE ONE Administration Ondansetron HCl 4 mg 10/25/19 14:57 10/25/19 15:24 Zofran Injection IVPUSH 10/25/19 14:58 4 mg ONCE ONE Administration Medical Decision Making - Medical Decision Making 10/25/19 16:19 The patient is a 49-year-old male with past medical history of upper GI probl ems, PUD with a surgical repair, presents to the ER for epigastric pain. He states his pain has been going on for 9 days and he cannot "shake the pain. "He states that he was unable to sleep last night due to the pain. He states his pain Discharge - Discharge Information Clinical Impression/Diagnosis: Abdominal pain Qualifiers: Abdominal location: unspecified location Qualified Code(s): R10.9 - Unspecified abdominal pain - Follow up/Referral - Patient Discharge Instructions - Post Discharge Activity
[2019-10-25 16:32] LABS: ALBUMIN 3.9 g/dl (3.4-5.0); ALK PHOS 53 U/L (45-117); ANION GAP 7 MMOL/L (8-16); BILIRUBIN,TOTAL 0.8 mg/dL (0.2-1); BLOOD UREA NITROGEN 14.4 mg/dL (7-18); CALCIUM 9.5 mg/dL (8.5-10.1); CHLORIDE 101 mmol/L (98-107); CO2 31 mmol/L (21-32); CREATININE 1.1 mg/dL (0.55-1.3); GLUCOSE,RANDOM 111 mg/dL (74-106); LIPASE 51 U/L (73-393); POTASSIUM 3.8 mmol/L (3.5-5.1); SGOT/AST 26 U/L (15-37); SGPT/ALT 28 U/L (13-61); SODIUM 139 mmol/L (136-145); TOT PROT 6.9 g/dl (6.4-8.2)
[2019-10-25 16:40] LABS: BASO % 0.9 % (0-2.0); EOS % 2.2 % (0-4.5); HEMATOCRIT 45.1 % (35.4-49); HEMOGLOBIN 15.1 GM/dL (11.7-16.9); LYMPH % 30.1 % (8-40); MCH 32.1 pg (25.7-33.7); MCHC 33.5 g/dl (32.0-35.9); MEAN CELL VOLUME 95.8 fl (80-96); MEAN PLT VOLUME 8.5 fl (7.5-11.1); MONO % 8.2 % (3.8-10.2); NEUT % 58.6 % (42.8-82.8); PLATELET COUNT 200 K/MM3 (134-434); RBC 4.71 M/mm3 (4.00-5.60); RDW 13.2 % (11.9-15.9); WHITE BLOOD COUNT 5.7 K/mm3 (4.0-10.0)
[2019-10-25 19:51] LABS: EPI CELLS 29 /uL (0-25.1); HYALINE CASTS 11 /uL (0-3.1); URINE APPEARANCE CLEAR; URINE BACTERIA 116 /uL (0-1359); URINE BILIRUBIN 1+ (NEGATIVE); URINE COLOR DK YELLOW; URINE GLUCOSE (UA) NEGATIVE (NEGATIVE); URINE KETONE TRACE (NEGATIVE); URINE LEUK ESTERASE NEGATIVE (NEGATIVE); URINE NITRITE NEGATIVE (NEGATIVE); URINE PROTEIN 2+ (NEGATIVE); URINE RBC 3 /uL (0-23.9)
--- NOTE | 2019-10-25 20:07 | PDOC ---
*Physical Exam - Vital Signs Last Vital Signs Temp Pulse Resp BP Pulse Ox 97.9 F 91 H 18 128/92 97 10/25/19 14:13 10/25/19 14:13 10/25/19 14:13 10/25/19 14:13 10/25/19 14:13 ED Treatment Course - LABORATORY CBC & Chemistry Diagram: 10/25/19 15:10 10/25/19 15:10 - ADDITIONAL ORDERS Additional order review: Laboratory Results 10/25/19 10/25/19 15:30 15:10 Sodium 139 Potassium 3.8 Chloride 101 Carbon Dioxide 31 Anion Gap 7 L BUN 14.4 Creatinine 1.1 Est GFR (CKD-EPI)AfAm 89.61 Est GFR (CKD-EPI)NonAf 77.32 Random Glucose 111 H Calcium 9.5 Total Bilirubin 0.8 AST 26 ALT 28 Alkaline Phosphatase 53 Total Protein 6.9 Albumin 3.9 Lipase 51 L Urine Color Dk yellow Urine Appearance Clear Urine pH 5.0 D Ur Specific [place] 1.039 H Urine Protein 2+ H Urine Glucose (UA) Negative Urine Ketones Trace H Urine Blood Negative Urine Nitrite Negative Urine Bilirubin 1+ H Urine Urobilinogen 1.0 Ur Leukocyte Esterase Negative Urine RBC (Auto) 3 Urine Casts (Auto) 11 U Epithel Cells (Auto) 29 Urine Bacteria (Auto) 116 10/25/19 15:10 RBC 4.71 MCV 95.8 MCHC 33.5 RDW 13.2 MPV 8.5 Neutrophils % 58.6 Lymphocytes % 30.1 Monocytes % 8.2 Eosinophils % 2.2 Basophils % 0.9 - Medications Given in the ED: ED Medications Discontinued Medications Generic Name Dose Route Start Last Admin Trade Name Digna PRN Reason Stop Dose Admin Acetaminophen 1,000 mg 10/25/19 14:57 10/25/19 15:23 Ofirmev Injection - IVPB 10/25/19 14:58 1,000 mg ONCE ONE Administration Al Hydroxide/Mg Hydroxide 30 ml 10/25/19 14:58 10/25/19 15:24 Mylanta Oral Suspension - PO 10/25/19 14:59 30 ml ONCE ONE Administration Sodium Chloride 1,000 mls @ 1,000 mls/hr 10/25/19 14:57 10/25/19 15:23 Normal Saline - IV 10/25/19 15:56 1,000 mls/hr ASDIR STA Administration Famotidine/Sodium Chloride 20 mg in 50 mls @ 100 mls/hr 10/25/19 14:57 10/25/19 15:23 Pepcid 20 Mg Premixed Ivpb - IVPB 10/25/19 15:26 100 mls/hr ONCE ONE Administration Ondansetron HCl 4 mg 10/25/19 14:57 10/25/19 15:24 Zofran Injection IVPUSH 10/25/19 14:58 4 mg ONCE ONE Administration Medical Decision Making - Medical Decision Making 10/25/19 20:33 cardiac labs wnl. ekg : sinus bradyL: 45 will give referral for GI and PCP follow up Discharge - Discharge Information Problems reviewed: Yes Clinical Impression/Diagnosis: Abdominal pain Qualifiers: Abdominal location: unspecified location Qualified Code(s): R10.9 - Unspecified abdominal pain Gastritis Qualifiers: Gastritis type: unspecified gastritis Chronicity: acute Gastritis bleeding: without bleeding Qualified Code(s): K29.00 - Acute gastritis without bleeding Disposition: HOME - Additional Discharge Information Prescriptions: Famotidine [Acid Controller] 40 mg PO DAILY #20 tablet - Follow up/Referral - Patient Discharge Instructions Patient Printed Discharge Instructions: DI for Abdominal Pain-Adult Additional Instructions: Please follow-up with your throw out clerk as soon as possible I am giving you a medicine for acid reduction. - Post Discharge Activity Work/Back to School Note: Back to Work
[2019-10-25 21:34] LABS: URINE WBC 65.1 /uL (0-25.8)
--- NOTE | 2019-10-26 09:05 | EKG ---
Test Reason : Blood Pressure : / mmHG Vent. Rate : 045 BPM Atrial Rate : 045 BPM P-R Int : 114 ms QRS Dur : 096 ms QT Int : 496 ms P-R-T Axes : 074 044 -04 degrees QTc Int : 429 ms SINUS BRADYCARDIA OTHERWISE NORMAL ECG WHEN COMPARED WITH ECG OF 27-OCT-2017 15:34, VENT. RATE HAS DECREASED BY 24 BPM Confirmed by MD ROS, KEN ([id number]) on 10/26/2019 9:04:39 AM Referred By: Confirmed By:KEN SOMMER MD
== END 2019-10-25 20:48 | disposition home or self-care (01) ==
LOC: JER 14:06
PROC: 3E0333Z Introduction of Anti-inflammatory into Peripheral Vein, Percutaneous Approach (ICD-10-PCS; principal; 2019-10-25)
PROC: 3E033GC Introduction of Other Therapeutic Substance into Peripheral Vein, Percutaneous Approach (ICD-10-PCS; 2019-10-25)
PROC: 3E0337Z Introduction of Electrolytic and Water Balance Substance into Peripheral Vein, Percutaneous Approach (ICD-10-PCS; 2019-10-25)
DX: R10.9 Unspecified abdominal pain (principal); K29.00 Acute gastritis without bleeding
CPT/HCPCS: 36415; 76705-TC; 80053; 81003; 82550; 82553; 83690; 84484; 85025; 87086; 93005; 93010; 99285-25; J0131

== ENCOUNTER 2020-04-12 04:23 | Day surgery (SDC) | payer BC ==
[2020-04-11 09:31] VITALS: BMI 24.4
[2020-04-12] MEDS ORDERED: LIDOCAINE HCL 2% JELLY 10 ML CARTRIDGE ONE (09:09)
[2020-04-12] MEDS ORDERED: LIDOCAINE HCL 2% JELLY 10 ML CARTRIDGE TP ONE (09:13)
[2020-04-12 11:03] VITALS: BP 150/99; PULSE 61
[2020-04-12 13:04] VITALS: TEMP 97.8
== END 2020-04-12 10:11 | disposition home or self-care (01) ==
LOC: JASU-ENDO 04:23
PROVIDERS: ATTEND Internal Medicine Gastroenterology
PROC: 065Y4ZC Destruction of Hemorrhoidal Plexus, Percutaneous Endoscopic Approach (ICD-10-PCS; 2020-04-12)
PROC: 06LY4CC Occlusion of Hemorrhoidal Plexus with Extraluminal Device, Percutaneous Endoscopic Approach (ICD-10-PCS; 2020-04-12)
PROC: 0DJD8ZZ Inspection of Lower Intestinal Tract, Via Natural or Artificial Opening Endoscopic (ICD-10-PCS; principal; 2020-04-12 09:15)
DX: Z12.11 Encounter for screening for malignant neoplasm of colon (principal); K64.9 Unspecified hemorrhoids

== ENCOUNTER 2022-07-04 19:27 | Emergency (ER) | payer BC ==
[2022-07-04 19:32] VITALS: BP 137/85; PULSE 93; RESP 18; TEMP 97; BMI 22.4
[2022-07-04] MEDS ORDERED: IBUPROFEN 600 MG TABLET (FP) PO ONE ×2 (21:17→21:23)
[2022-07-04 21:48] LABS: BASO % 0.4 % (0-2.0); EOS % 1.2 % (0-4.5); HEMATOCRIT 44.3 % (35.4-49); HEMOGLOBIN 15.5 GM/dL (11.7-16.9); LYMPH % 32.6 % (8-40); MCH 33.1 pg (25.7-33.7); MCHC 34.9 g/dl (32.0-35.9); MEAN CELL VOLUME 94.8 fl (80-96); MEAN PLT VOLUME 8.1 fl (7.5-11.1); MONO % 9.5 % (3.8-10.2); NEUT % 56.3 % (42.8-82.8); PLATELET COUNT 209 10^3/uL (134-434); RBC 4.67 M/mm3 (4.00-5.60); RDW 13.9 % (11.9-15.9); WHITE BLOOD COUNT 7.8 K/mm3 (4.0-10.0)
[2022-07-04 22:10] LABS: POTASSIUM 3.3 mmol/L (3.5-5.1)
[2022-07-04 22:12] LABS: ALBUMIN 4.1 g/dl (3.4-5.0); BLOOD UREA NITROGEN 10.4 mg/dL (7-18); CALCIUM 9.3 mg/dL (8.5-10.1); MAGNESIUM 2.3 mg/dL (1.8-2.4)
[2022-07-04 22:15] LABS: CREATININE 0.9 mg/dL (0.55-1.3)
[2022-07-04 22:17] LABS: TOT PROT 7.6 g/dl (6.4-8.2)
[2022-07-04 22:19] LABS: BILIRUBIN,TOTAL 0.9 mg/dL (0.2-1)
[2022-07-04] MEDS ORDERED: POTASSIUM CHLORIDE ORAL LIQUID 20 MEQ/15 ML PO ONE (22:24)
[2022-07-04] MEDS ORDERED: POTASSIUM CHLORIDE TABS 20 MEQ TABLET.ER (FP) PO ONE (22:32)
== END 2022-07-04 23:10 | disposition home or self-care (01) ==
LOC: JER 19:27
DX: F10.929 Alcohol use, unspecified with intoxication, unspecified (principal); R20.0 Anesthesia of skin; M79.604 Pain in right leg
CPT/HCPCS: 36415; 70450-TC; 80053; 83735; 85025; 99284-25